=== PATIENT | female | born 1960 | race African-American/Black ===

== ENCOUNTER 2020-01-10 14:38 | Outpatient (REF) | payer BC, SELFPAY | END 2020-01-10 14:39 | disposition home or self-care (01) | LOC: HO.LAB 14:38 | PROVIDERS: Visit Provider Internal Medicine | DX: Z20.828 Contact with and (suspected) exposure to other viral communicable diseases (principal) | CPT/HCPCS: U0003 ==

== ENCOUNTER 2020-11-24 15:28 | Outpatient (REF) | payer BC, SELFPAY | END 2020-11-24 15:29 | disposition home or self-care (01) | LOC: HO.LAB 15:28 | PROVIDERS: PCP Internal Medicine; Referring Provider Internal Medicine; Visit Provider Internal Medicine | DX: Z20.822 Contact with and (suspected) exposure to COVID-19 (principal) | CPT/HCPCS: C9803; U0003; U0005 ==